=== PATIENT | male | born 1970 | race Caucasian/White ===

== ENCOUNTER 2021-01-05 10:09 | Emergency (ER) | payer OTHER ==
[~2021-01-05] VITALS: Ht 170.2 cm; Wt 95.3 kg
[2021-01-05 10:20] VITALS: BP_SYST 137
[2021-01-05] MEDS ORDERED: KETOROLAC TROMETHAMINE 30 MG VIAL IM ONE (10:30)
[2021-01-05 12:00] VITALS: BP_SYST 137
== END 2021-01-05 12:00 | disposition home or self-care (01) ==
LOC: SED 10:09
DX: M25.511 Pain in right shoulder (principal); G89.29 Other chronic pain; M25.522 Pain in left elbow; R04.0 Epistaxis
CPT/HCPCS: 73030; 93005; 96372; 99283; J1885